=== PATIENT | female | born 1985 | race Caucasian/White ===

== ENCOUNTER → 2016-12-15 | Day surgery (SDC) | payer OTHER ==
[~2016-12-15] MED LIST: KETOROLAC TROMETHAMINE 30 MG/ML (IVP) VIAL IV PUSH ONE; MEPERIDINE HCL 25 MG/ML VIAL ONE; METOCLOPRAMIDE HCL 10 MG/2 ML VIAL ONE; MIDAZOLAM HCL 2 MG/2 ML VIAL ONE; MORPHINE SULFATE 4 MG/ML INJ ONE; ONDANSETRON HCL 4 MG/2 ML VIAL IV PUSH ONE; PROMETHAZINE INJ 25 MG/ML VIAL ONE; PROPOFOL 200 MG/20 ML AMP IV ONE; ceFAZolin INJ 1,000 MG VIAL ONE
--- NOTE | 2016-12-16 13:24 | MP ---
cc: SATHYA DOWNEY DATE OF SURGERY 12/15/2016 PREOPERATIVE DIAGNOSIS Desires permanent sterility. POSTOPERATIVE DIAGNOSIS Desires permanent sterility. PROCEDURE Laparoscopic bilateral tubal ligation with Falope rings. SURGEON MD Nasreen ANESTHESIA General. ESTIMATED BLOOD LOSS 30 cc. COMPLICATIONS None. FINDINGS The patient had a grossly normal uterus, fallopian tubes and ovaries. There was one small area of superficial endometriosis just medial to the left ovary near the utero-ovarian ligament. The liver, gallbladder, stomach and upper abdominal organs were normal as far as could be visualized. DESCRIPTION OF PROCEDURE The patient was brought to the operating room and following general anesthesia was placed in the dorsal lithotomy position. Her vagina, abdomen and perineum were prepped and draped. HUMI catheter was placed in the uterus and the bladder was drained with a red rubber catheter. A 1-cm subumbilical skin incision was made. The Veress needle was inserted and 3 liters of CO2 was infused into the abdomen. Veress needle was then removed and a laparoscope was placed without difficulty. The second puncture site was created under direct visualization. The findings were as noted above. The Falope ring applicator was loaded and Falope rings were easily applied to the isthmic portion of the left and right tubes. Photos of both areas were taken. With no other pathology present, all instruments removed and the CO2 gas was allowed to escape. The incisions were then closed with subcuticular #4-0 Vicryl stitch. The patient was then taken to the recovery room in good condition with all counts correct. She will be discharged home when stable and alert to follow up in one week in our office. DISCHARGE MEDICATION Percocet. DISCHARGE INSTRUCTIONS She was given instructions on physical activity and instructed to resume a regular diet as tolerated. Sathya Downey MD TGS/SSB /9:29 AM /1:16 PM
== END | disposition home or self-care (01) ==
LOC: ESDC 08:00
PROVIDERS: ATTEND Obstetrics & Gynecology
DX: Z30.2 Encounter for sterilization (principal)
CPT/HCPCS: 00851; 58671; J0690; J1885; J2175; J2250; J2270; J2405; J2550; J2765; J3010